=== PATIENT | female | born 1995 | race Caucasian/White ===

== ENCOUNTER 2017-05-10 12:12 | Emergency (ER) | payer SELFPAY ==
--- NOTE | 2017-05-10 13:13 | ER Document Report ---
ED Medical Screen (RME) - General Chief Complaint: Sore Throat Stated Complaint: SORE THROAT Time Seen by Provider: 05/10/17 13:11 Mode of Arrival: Ambulatory Information source: Patient TRAVEL OUTSIDE OF THE [place] IN LAST 30 DAYS: No - HPI Patient complains to provider of: sore throat Onset: Other - pt. has been on Abx and prednisone for sore throat with only minimal relief - Related Data Allergies/Adverse Reactions: No Known Allergies Allergy (Verified 05/10/17 12:22) Past Medical History - Social History Chew tobacco use (# tins/day): No Frequency of alcohol use: None Drug Abuse: None Renal/ Medical History: Denies: Hx Peritoneal Dialysis Physical Exam - Vital signs Vitals: Temp Pulse Resp BP Pulse Ox 98.5 F 89 18 132/74 H 99 05/10/17 12:28 05/10/17 12:28 05/10/17 12:28 05/10/17 12:28 05/10/17 12:28 Course - Vital Signs Vital signs: Temp Pulse Resp BP Pulse Ox 98.5 F 89 18 132/74 H 99 05/10/17 12:28 05/10/17 12:28 05/10/17 12:28 05/10/17 12:28 05/10/17 12:28
--- NOTE | 2017-05-10 13:42 | ER Document Report ---
HPI - HPI Patient complains to provider of: Persistent sore throat Onset: Other - Friday Onset/Duration: Gradual Pain Level: 5 Context: 21-year-old female with sore throat and tonsillitis since Friday [facility] was given Augmentin, prednisone, Toradol shot. She did have blood drawn on but does not know the results. She is very worried because she does not know what is wrong with her throat. The rapid strep was negative twice at that office. She has no abdominal pain or vomiting. No history of mononucleosis. Associated Symptoms: None Exacerbated by: Other - Swallowing Relieved by: Denies - CONSTITUTIONAL Constitutional: REPORTS: Fever. DENIES: Chills - EENT EENT: REPORTS: Sore Throat, Ear Pain. DENIES: Eye problems - NEURO Neurology: REPORTS: Headache - RESPIRATORY Respiratory: REPORTS: Trouble Breathing, Coughing Past Medical History - General Information source: Patient - Social History Smoking Status: Never Smoker Chew tobacco use (# tins/day): No Frequency of alcohol use: None Drug Abuse: None Lives with: Spouse/Significant other Family History: Reviewed & Not Pertinent Patient has suicidal ideation: No Patient has homicidal ideation: No - Medical History Medical History: Negative Renal/ Medical History: Denies: Hx Peritoneal Dialysis Surgical Hx: Negative Vertical Provider Document - CONSTITUTIONAL Agree With Documented VS: Yes Exam Limitations: No Limitations - INFECTION CONTROL TRAVEL OUTSIDE OF THE [place] IN LAST 30 DAYS: No - HEENT HEENT: Normocephalic, Pharyngeal Erythema. negative: Conjuctival Injection, Tympanic Membrane Red, Tympanic Membrane Bulging Notes: Bilateral exudative tonsillitis - NECK Neck: Supple, Lymphadenopathy-Left - Anterior, Lymphadenopathy-Right - Anterior - RESPIRATORY Respiratory: Breath Sounds Normal, No Respiratory Distress O2 Sat by Pulse Oximetry: 99 - CARDIOVASCULAR Cardiovascular: Regular Rate, Regular Rhythm - GI/ABDOMEN Gastrointestinal: Abdomen Soft, Abdomen Non-Tender, No Organomegaly, Normal Bowel Sounds - BACK Back: Normal Inspection - MUSCULOSKELETAL/EXTREMETIES Musculoskeletal/Extremeties: MAEW, FROM - NEURO Level of Consciousness: Awake, Alert, Sedated - DERM Integumentary: Warm, Dry, No Rash Course - Vital Signs Vital signs: Temp Pulse Resp BP Pulse Ox 98.5 F 89 18 132/74 H 99 05/10/17 12:28 05/10/17 12:28 05/10/17 12:28 05/10/17 12:28 05/10/17 12:28 - Laboratory Result Diagrams: 05/10/17 14:20 Discharge - Discharge Clinical Impression: Mononucleosis, Exudative tonsillitis Condition: Good Disposition: HOME, SELF-CARE Instructions: Tonsillitis ([facility]), Corticosteroid Medication ([facility]), Mononucleosis ([facility]) Additional Instructions: plenty of fluids motrin for pain tylenol for pain to er if worse NO sports that can cause injury to abdominal cavity (liver or spleen) Prescriptions: Ibuprofen [Motrin 800 mg Tablet] 800 mg PO Q8HP PRN #30 tablet PRN Reason: Referrals: ANDREA ISIDRO PA-C [Primary Care Provider] - Follow up as needed
[2017-05-10] MEDS ORDERED: NORMAL SALINE 1000 ML 1,000 ML IV ONE (13:48)
[2017-05-10] MEDS ORDERED: DEXAMETHASONE SOD PHOS INJ 10 MG/1 ML VIAL IV ONE (13:48)
[2017-05-10 15:22] LABS: HEMATOCRIT 40.7 % (36.0-47.0); HEMOGLOBIN 13.9 g/dL (12.0-15.5); MEAN CORPUSCULAR HGB CONC 34.1 g/dL (32.0-36.0); MEAN CORPUSCULAR VOLUME 91 fl (80-97); PLATELET COUNT 175 10^3/uL (150-450); RED BLOOD COUNT 4.48 10^6/uL (3.72-5.28); RED CELL DISTRIBUTION WIDTH 13.4 % (11.5-14.0); WHITE BLOOD COUNT 10.6 10^3/uL (4.0-10.5)
[2017-05-10 15:25] VITALS: BP 114/73
[2017-05-10 15:25] LABS: ABSOLUTE LYMPHOCYTES# (MANUAL) 6.5 10^3/uL (0.5-4.7); ABSOLUTE MONOCYTES # (MANUAL) 0.5 10^3/uL (0.1-1.4); ABSOLUTE NEUTROPHILS# (MANUAL) 3.6 10^3/uL (1.7-8.2); BASOPHILS % (MANUAL) 0 % (0-2); EOSINOPHILS % (MANUAL) 0 % (0-6); LYMPHOCYTES % (MANUAL) 39 % (13-45); MONOCYTES % (MANUAL) 5 % (3-13); SEGMENTED NEUTROPHILS % (MAN) 34 % (42-78); TOTAL CELLS COUNTED 100
[2017-05-10 15:26] LABS: PLATELET COMMENT ADEQUATE; RBC MORPHOLOGY COMMENT NORMO-CYTIC/CHROMIC
[2017-05-12 15:01] LABS: PATH REVIEW PATHOLOGIST REVIEWED
== END 2017-05-10 15:24 | disposition home or self-care (01) ==
LOC: ER 12:12
DX: B27.90 Infectious mononucleosis, unspecified without complication (principal); J03.90 Acute tonsillitis, unspecified; R50.9 Fever, unspecified; R05 Cough; R06.00 Dyspnea, unspecified; R51 Headache; H92.09 Otalgia, unspecified ear
CPT/HCPCS: 99283; 96374; 36415; 87070; 87880; 85025; 86308; J7030; J1100